=== PATIENT | male | born 1980 | race Caucasian/White ===

== ENCOUNTER 2024-06-03 12:31 | Emergency (ER) | payer OTHER ==
[2024-06-03 12:36] VITALS: BP 119/78; PULSE 63; RESP 18; TEMP 98.3; BMI 30.4
[2024-06-03] MEDS: IBUPROFEN 400 MG TABLET (FP) PO ONE (13:04)
[2024-06-03] MEDS ORDERED: IBUPROFEN 400 MG TABLET (FP) PO ONE (13:04)
== END 2024-06-03 13:31 | disposition home or self-care (01) ==
LOC: JERFT 12:31
DX: S96.912A Strain of unspecified muscle and tendon at ankle and foot level, left foot, initial encounter (principal); X50.1XXA Overexertion from prolonged static or awkward postures, initial encounter
CPT/HCPCS: 73630-TC-LT; 99283-25